=== PATIENT | female | born 1970 | race African-American/Black ===

== ENCOUNTER → 2016-10-27 | Outpatient (CLI) | payer BC ==
[~2016-10-27] VITALS: Ht 157.5 cm; Wt 92.1 kg
[~2016-10-27] MED LIST: ACCUNEB SO1.25 MG/1 INH; ACETAMINOPHEN325 M1 PO; ADVAIR HFA115 MCG/21 INH; ALDACTONE25 MG PO; AMBIEN 5 MG TABL5 M1 PO; AMLODIPINE BESY10 MG PO; ATORVASTATIN CA40 MG PO; BUTRANS1 EAC1 TD; CARVEDILOL6.25 MG PO; CELEBREX 200 M200 MG PO; CLONAZEPAM 1 MG1 M1 PO; COREG3.125 MG; FOLIC ACID1 MG PO; GLUCOPHAGE1000 MG PO; GLUCOTROL5 MG PO; HUMIRA CRO40 MG/0.8 SQ; HUMIRA40 MG/0.1 SQ; HYDROCODONE-APA1 TA1 PO; JARDIANCE25 MG PO; LANTUS100 UNIT/M SC; LASIX 20 MG TAB20 MG PO; LEVAQUIN 500 M500 M2 PO; LEVOTHYROXIN0.075 MG PO; LEVOTHYROXIN0.175 MG PO; LEVOTHYROXINE0.05 MG PO; LEVOTHYROXINE0.2 M1 PO; LIORESAL 10 MG10 MG PO; LIPITOR 20 MG T20 M1 PO; LISINOPRIL10 MG PO; LISINOPRIL40 MG PO; MEDROLDOSEPACK PO; METHIMAZOLE10 MG PO; NORVASC5 MG PO; OXYBUTYNIN 5 MG5 M2 PO; PANTOPRAZOLE SO40 M1 PO; PREDNISONE 10 M10 MG PO; PREDNISONE 20 M20 MG PO; SYMBICORT160 MCG/4. INH; TYLENOL325 MG PO; ULTRA-LIGHT RO1 EACH MC; VICTOZA0.6 MG/0.1 SUBQ; XOLAIR150 MG SUBQ; ZETIA10 MG PO; ZOLOFT50 MG PO
--- NOTE | ~2016-10-27 | HPC ---
[facility] [address] [place] [address] PAIN MANAGEMENT CONSULTATION Name: ANTONINO BABB Room #: REG [facility] Alaina#: [id number] Admission: 10/27/16 Attend Phys: Jesús Nguyễn DO Discharge: Date of : 74 Report #: [id number] THIS REPORT FOR: //name// CC: Jesús Marquez MD DATE OF SERVICE: 10/27/2016 REFERRING PHYSICIAN: Anita Marquez M.D. CHIEF COMPLAINT: Neck pain, bilateral upper extremity pain, midback pain, low back pain, bilateral lower extremity pain. HISTORY OF PRESENT ILLNESS: As you know, the patient is a 46-year-old female suffering from generalized pain disorder involving cervical spine, bilateral upper extremity, bilateral lower extremities. She states the pain began approximately 3 years ago. She indicates no injury, no trauma that may have led to symptoms. The patient has been referred to our clinic by her primary care physician after failing conservative medical treatments. She indicates pain is continuous, steady and constant, describes the pain as shooting, aching, crushing, cramping, throbbing, tender, places current pain score at 8/10, daily average at 9/10, worst pain has been is 10/10. The patient states pain is exacerbated with activity, improves with nothing to date. She has been referred to our service for evaluation for suggestions for treatment. PAST MEDICAL HISTORY: 1. Diabetes mellitus type 2. 2. Chronic anemia. 3. Asthma. 4. Hypertension. 5. Chronic obstructive pulmonary disease. 6. Coronary artery disease. 7. . 8. Emotional problems 9. Degenerative joint disease. 10. Osteoarthritis. PAST SURGICAL HISTORY: Thyroidectomy, hysterectomy. SOCIAL HISTORY: The patient denies current tobacco use, denies IV or illicit drug use. Denies any chronic alcohol use. She is unemployed, has been out of the work force for nearly 15 months. She is not in litigation in regards to her pain. She is not receiving workmen's compensation. She does indicate disability coverage. She is unaccompanied today. [facility] [address] [place] [address] PAIN MANAGEMENT CONSULTATION Name: ANTONINO BABB Room #: REG [facility]#: [id number] Admission: 10/27/16 Attend Phys: Jesús Nguyễn DO Discharge: Date of : 74 Report #: [id number] REVIEW OF SYSTEMS: Positive for weight gain, decrease in appetite, fever, night sweats, fatigue, weakness, frequent and recurrent headaches, eye disease, wearing corrective eyewear, blurred and double vision, hearing loss with tinnitus, chronic sinus problems with rhinitis, shortness of breath walking and lying flat, heart trouble, chest pains, palpitations, frequent and recurrent coughs, asthma, wheezing, loss of appetite, nausea, vomiting, abdominal pain, frequent urination, nocturia, incontinence and dribbling to urine, sexual difficulty, rash, itching, lightheadedness and dizziness, numbness and tingling sensations, memory loss, confusion, nervousness, depression, insomnia, thyroid disease, diabetes mellitus type 2, excessive thirst, urination, heat and cold intolerance, bleeding and bruising tendencies. All other review of systems negative per 12-point review of systems other than those listed in history of present illness. Pain impact score 67/70 indicating complete interference of daily activities secondary to pain. ALLERGIES: MORPHINE, ADHESIVE TAPES. CURRENT MEDICATIONS: Amlodipine 10 mg per day, pantoprazole 40 mg per day, Lantus 56 units before bedtime, spironolactone 25 mg per day, Humira 40 mg subcutaneous, sertraline 50 mg per day, clonazepam 1 mg 3 times a day, Victoza 1.8 mg subq once a day, lisinopril 40 mg per day, carvedilol 6.25 mg twice a day, metformin 1000 mg twice a day, Xolair 150 mg subcutaneous, Symbicort 160/4.5 one puff b.i.d., folic acid 1 mg per day, celecoxib 200 mg once a day, hydrocodone 7.5/325 one tab p.o. q. 8 hours p.r.n. for pain, Jardiance 25 mg once a day, Zetia 10 mg per day, Lipitor 40 mg per day, zolpidem 5 mg p.o. at bedtime, baclofen 10 mg 3 times a day, levothyroxine 200 mcg per day. IMAGING: X-ray of the lumbar spine obtained 10/27/2016 shows grade 1 anterolisthesis L5 on S1, degenerative disk disease, facet arthrosis, bilateral L5 pars intraarticularis fracture, no significant change. MRI lumbar spine obtained 12/10/2015 shows anterolisthesis of L5 pars defects bilateral foraminal encroachment, apparent pars defects at L5 per MRI. PHYSICAL EXAMINATION: VITAL SIGNS: Blood pressure 151/85, pulse 70, respiratory rate 18 and unlabored. The patient 98% on room air, height 5 feet 2 inches tall, weight 203 pounds, BMI calculated 37.1. GENERAL: Well-developed, well-nourished, well-hydrated, morbidly obese 46-year-old female appearing stated age, placing pain score today 5/10. HEENT: Normocephalic, atraumatic. Pupils equal, round, reactive to light. Extraocular muscles are intact. Speech is fluent. NEUROLOGIC: The patient appears to be in a fair historian. LUNGS: Decreased breath sounds bilaterally, prolonged expiratory phase. [facility] [address] [place] [address] PAIN MANAGEMENT CONSULTATION Name: SKINNYANTONINO Room #: REG [facility].#: [id number] Admission: 10/27/16 Attend Phys: Jesús Nguyễn DO Discharge: Date of : 74 Report #: [id number] CARDIOVASCULAR: Regular. No appreciable gallop or rub. ABDOMEN: Soft, obese, normoactive bowel sounds. EXTREMITIES: Show no clubbing, no cyanosis, no edema. MUSCULOSKELETAL: Upper extremity strength and lower extremity strength appeared equal and symmetrical 5/5, intact to light touch from C5 through T1 dermatomes and again from L1 through S2 dermatomes. There is multiple tender points, no specific trigger points. Spurling's test is mildly positive. Lumbar provocation testing causes intensification of pain. Seated straight leg raising is negative. Supine straight leg raising is positive. Benita test is negative. ASSESSMENT: 1. Chronic neck pain, bilateral shoulder pain. 2. Possible cervical radiculopathy. 3. Myofascial pain syndrome. 4. Chronic low back pain. 5. Possible lumbar radiculopathy. 6. Chronic intractable pain. PLAN: 1. The patient has been referred to our service for evaluation for multiple pain generators, though no significant workup has been provided to determine new pathology, would recommend the patient to undergo at least x-ray imaging of the lumbar spine. We will review the findings and discuss treatment options for lumbar radiculopathy and chronic lumbar back pain, likely the treatment options would include physical therapy, core strengthening, weight loss. We discussed intra-articular facet injections, medial branch nerve blocks, radiofrequency lesioning to address any facet arthropathy pain and epidural injections for lumbar radicular symptoms, surgical options may also be presented. 2. In regards to patient's neck and upper extremity pain, the patient is suffering from some facet arthropathy in the cervical region to the extent of how much pathology exists in the cervical spine. I have no imaging study to further determine. We may need to look into this in the future. We do wish to concentrate on the back at this time and then look towards the cervical region later if necessary. The patient was amenable to our suggestions to begin with back and then work towards cervical spine as needed. 3. No medication changes were made at today's visit. The patient will continue current medical therapy as previously prescribed. 4. We wish to thank Dr. Marquez for the referral of this patient to our clinic. We will keep you apprised of her response to treatment as we address her generalized pain disorder, starting with her low back. Again, we wish to thank you for the opportunity to participate in her care. <ELECTRONICALLY SIGNED> By: Jesús Nguyễn DO 11/10/16 1128 [id number] Jesús Nguyễn DO /nt
[2016-10-27 09:43] VITALS: BP 151/85
== END | disposition home or self-care (01) ==
LOC: PAIN 07:26
DX: M54.2 Cervicalgia (principal); E11.9 Type 2 diabetes mellitus without complications; D64.9 Anemia, unspecified; J45.909 Unspecified asthma, uncomplicated; I10 Essential (primary) hypertension; J44.9 Chronic obstructive pulmonary disease, unspecified; I25.10 Atherosclerotic heart disease of native coronary artery without angina pectoris; M19.90 Unspecified osteoarthritis, unspecified site; Z90.710 Acquired absence of both cervix and uterus; M54.12 Radiculopathy, cervical region; M79.1 Myalgia; G89.29 Other chronic pain

== ENCOUNTER → 2016-11-02 | Outpatient (CLI) | payer BC ==
[~2016-11-02] VITALS: Ht 157.5 cm; Wt 91.2 kg
--- NOTE | ~2016-11-02 | HPC ---
[facility] [place] [address] PAIN MANAGEMENT CONSULTATION Name: ANTONINO BABB [facility] [id number] Admission: 11/02/16 Attend Phys: Jesús Nguyễn DO Discharge: Date of : 74 Report #: [id number] THIS REPORT FOR: //name// CC: Jesús Marquez DATE OF SERVICE: 11/02/2016 REFERRING PHYSICIAN: Anita Marquez MD CHIEF COMPLAINT: Neck pain, upper extremity pain, low back pain, bilateral lower extremity pain. HISTORY OF PRESENT ILLNESS: As you know, the patient is a 46-year-old female with multiple pain generators including cervical spine, mid back, low back, upper and lower extremity pain. Her generalized pain disorder is concerning of myofascial pain syndrome such as fibromyalgia, though we have begun workup on the lumbar region. She does show pars interarticular fractures at the L5 level bilaterally. This is the likely source of the axial back pain issues. I discussed with the patient the options for treatment for this would be a fairly limited. This would be medication management with rest, relaxation and core strengthening and physical therapy. Other options would be surgical as in stabilizing the area. The patient returns today to discuss the findings further. ALLERGIES: MORPHINE and ADHESIVE TAPE. CURRENT MEDICATIONS: See extensive list in chart. IMAGING: X-ray of lumbar spine obtained 10/27/2016 shows grade 1 anterolisthesis L5 and S1, facet arthropathy, bilateral L5 pars interarticularis fractures. No significant changes with flexion and extension. PHYSICAL EXAMINATION: VITAL SIGNS: Blood pressure 149/96, pulse 78, respiratory rate 16, unlabored. The patient 98% on room air, height 5 feet 2 inch tall, weight 201 pounds, BMI calculated 36.8. GENERAL: Well-developed, well-nourished, well-hydrated 46-year-old female appearing stated age, placing current pain score 5/10. HEENT: Normocephalic and atraumatic. Pupils equal, round, reactive to light. Extraocular muscles are intact. Sclerae nonicteric, without injection. Speech fluent. EXTREMITIES: Show no clubbing, no cyanosis, no edema. MUSCULOSKELETAL: The patient has upper extremity and lower extremity palpatory tenderness indicative of myofascial pain syndrome. She has 16 of 18 tender points indicative of myofascial pain [place] [address] PAIN MANAGEMENT CONSULTATION Name: SKINNYANTONINO [facility] [id number] Admission: 11/02/16 Attend Phys: Jesús Nguyễn DO Discharge: Date of : 74 Report #: [id number] nature. She is also complaining of chronic low back pain which is provocative with extension, rotation, and lateral flexion. There does not appear to be any radicular component. Seated straight leg raising negative. Supine straight leg raising reported that is only axial in presentation. ASSESSMENT: 1. Chronic low back pain. 2. Chronic neck pain with bilateral upper extremity pain. 3. Bilateral lower extremity pain. 4. Fibromyalgia like symptoms. PLAN: 1. The patient has returned today in followup visit where we have reviewed x-ray imaging with flexion and extension of the lumbar spine. There was concern the spondylolisthesis at L5-S1 may be related to a pathologic movement. I am happy to indicate to the patient today. There appears to be no pathologic movement that would require stabilization immediately. Certainly this could be the patient's pain generator on lower lumbar spine. Treatment as indicated in the HPI would be physical therapy, stretching exercise, core strengthening, low dose of medication for pain control. Surgical options do exist, but at this time, the patient does not wish to consider this option as I have indicated I do not feel that would be a significant improvement in the patient's overall symptoms. Would recommend changes in medication therapy initially. If this is effective, then continue the therapy as originally directed. 2. We will start the patient on a Butrans patch 10 mcg patch 1 patch per week. I have given the patient #4 patches, advised that to utilize the medication as directed. This will provide the patient with good baseline pain control, providing pain relief with minimal mu receptor side effects. The patient was started on the Butrans patch immediately. 2. The patient returned only half hour after we saw her indicating that coverage for the Butrans is not possible. We will shift the patient to buprenorphine 2 mg dose 1 tab p.o. q. 12 hours p.r.n. She can take a half tab to 1 tab as necessary, 2 mg dose. This will be the pain medication of choice for this patient's case. I do not feel escalating dosing or changing opioids in this patient's case would be warranted. We have given the patient the medication to trial over the next month. We will see her back in followup visit discuss efficacy. 3. The patient returns 1 month from today to discuss the Butrans medication whether or not continuation of his therapy would be appropriate. <ELECTRONICALLY SIGNED> By: Jesús Nguyễn DO 11/10/16 1128 1516 0517 Jesús Nguyễn, DO /nt
[2016-11-02 09:15] VITALS: BP 149/96
== END | disposition home or self-care (01) ==
LOC: PAIN 06:55
DX: M79.1 Myalgia (principal); M79.7 Fibromyalgia

== ENCOUNTER → 2016-11-24 | Outpatient (CLI) | payer BC ==
[~2016-11-24] VITALS: Ht 157.5 cm; Wt 90.7 kg
[~2016-11-24] MED LIST changes: +BUPRENORPHINE HC2 MG SL
--- NOTE | ~2016-11-24 | HPC ---
[facility] [place] [address] PAIN MANAGEMENT CONSULTATION Name: ANTONINO BABB [facility] [id number] Admission: 11/24/16 Attend Phys: Jesús Nguyễn DO Discharge: Date of : 74 Report #: [id number] THIS REPORT FOR: //name// CC: Jesús Marquez MD DATE OF SERVICE: 11/24/2016 REFERRING PHYSICIAN: Anita Marquez MD CHIEF COMPLAINT: Neck pain, upper extremity pain, low back pain and bilateral lower extremity pain. HISTORY OF PRESENT ILLNESS: As you know, the patient is a 46-year-old female suffering from multiple pain generators including cervical spine, mid back, low back. upper and lower extremities. The patient has seen multiple physicians, no specific and clear etiology has been determined for symptomology. Due to her complicated medical history, the patient was referred to our clinic to stabilize her medication with plans to return to PCP once we have done so. She returns today in followup visit indicating that she had a potential side effect to the Butrans patch that was provided at last visit. Apparently, she began to experience cough, this cough led to fevers and she was hospitalized, she was found to have actually underlying pneumonia, this was not a medication side effect. She was treated for the pneumonia and discharged from the [facility]. She returns today reporting pain score of around 10-1/2/10, indicates pain is continuous, steady, constant, shooting, cramping, aching, crushing, throbbing, tender, and continuous. The pain is involving generally the entire body. ALLERGIES: MORPHINE and ADHESIVE TAPE. CURRENT MEDICATIONS: See the extensive list in chart. SOCIAL HISTORY: The patient denies current tobacco use. Denies any IV or illicit drug use. She is unemployed, has been unemployed for nearly 15 months. She is unaccompanied. PHYSICAL EXAMINATION: VITAL SIGNS: Blood pressure 156/98, pulse is 70, respiratory rate 22 and unlabored, the patient is 100% on room air, height 5 feet 2 inches tall, weight 200 pounds, and BMI calculated at 36.6. GENERAL: Well-developed, well-nourished, well-hydrated, morbidly obese 46-year-old female, appearing stated age, pain is rated at 10-1/2/10. HEENT: Normocephalic, atraumatic. Pupils are equal, round, and reactive to light. [place] [address] PAIN MANAGEMENT CONSULTATION Name: ANTONINO BABB Room #: REG [facility]#: [id number] Admission: 11/24/16 Attend Phys: Jesús Nguyễn DO Discharge: Date of : 74 Report #: [id number] NEUROLOGIC: Speech is fluent. The patient deemed a fair historian. LUNGS: Clear. No wheeze, rhonchi, or rales. CARDIOVASCULAR: Regular. No appreciable gallop or rub. EXTREMITIES: Show no clubbing, no cyanosis, and no edema. MUSCULOSKELETAL: Upper extremity strength and lower extremity strength is symmetrical. She is tender to palpation of 16/18 tender points indicative of myofascial pain syndrome. Muscle bulk and tone equal and symmetrical in upper extremities and lower extremities. All activities of provocation including cervical rotation, extension and lateral flexion, lumbar provocation testing including extension, rotation, lateral flexion all with pain. ASSESSMENT: 1. Generalized pain disorder. 2. Fibromyalgia. 3. Chronic neck pain. 4. Chronic low back pain. 5. Chronic intractable pain. PLAN: 1. The patient returns today in followup visit with generalized pain disorder involving virtually every part of her body. As you are aware, this is a condition that will not be resolved with any specific and directed therapy. I believe the symptoms that she is experiencing mainly are fibromyalgia related. The patient and I discussed at length CDC guidelines in regards to opioid therapy in fibromyalgia patients. I did show the patient that these medications are typically ineffective for fibromyalgia pain and they are relatively contraindicated as these patients do not do well with opioids noticing no improvement even with rapid escalating doses. The CDC has indicated that this medications should not be used for long-term therapy. We did discuss that some of the generators of her symptoms may be arthritic in nature, but certainly do not require high dose opioid therapy. We have reviewed most of the patient's case and feel that a conservative low dose treatment with a nonsedating medication would be most appropriate. I do not foresee any interventional treatment in this patient's case to date, this may change coordinator time, but certainly does not appear to be necessary at this point. We discussed with the patient today that the potential side effects that she had to Butrans was nothing to do with the medication, had everything to do with the underlying pneumonia for which she was treated and released from the hospital after inpatient's stay. I believe that the Butrans patch that was applied just happened to be near or correlated somewhat to the timing of her development of pneumonia. It did not precipitate this problem. 2. The patient and I discussed rechallenging with the Buprenorphine medication. We will provide the patient with an oral tablet form of the medication, once it is shown she can tolerate the medication, we would then restart the Butrans patch itself. If she cannot tolerate the medication, we will discuss alternative treatments such as cognitive behavioral therapy and myofascial [facility] [address] [place] [address] PAIN MANAGEMENT CONSULTATION Name: ANTONINO BABB Room #: REG [facility].#: [id number] Admission: 11/24/16 Attend Phys: Jesús Nguyễn DO Discharge: Date of : 74 Report #: [id number] release techniques and acupuncture therapy. We would not be looking towards other opioid medications in this patient's case. Certainly, we can look to some neuropathic medications such as gabapentin, Lyrica, even some of the sodium channel sherry such as carbamazepine. 3. The patient was provided a prescription of buprenorphine 2 mg dose 1 tab p.o. twice a day, given #60 tablets, advised to take this medication as directed. We will review efficacy at followup visit in 1 month. By: [id number] Jesús Nguyễn DO /nt
[2016-11-24 08:33] VITALS: BP 156/98
== END ==
LOC: PAIN 07:29
DX: M79.7 Fibromyalgia (principal); M54.5 Low back pain; I10 Essential (primary) hypertension; Z87.891 Personal history of nicotine dependence; F10.21 Alcohol dependence, in remission; I42.9 Cardiomyopathy, unspecified; E03.9 Hypothyroidism, unspecified; Z87.09 Personal history of other diseases of the respiratory system